=== PATIENT | female | born 1965 | race African-American/Black ===

== ENCOUNTER 2020-05-31 11:02 | Outpatient (RCR) | payer OTHER | END 2020-08-17 12:38 | disposition home or self-care (01) | LOC: WSOH 11:02 | DX: S50.12XA Contusion of left forearm, initial encounter (principal); S52.502A Unspecified fracture of the lower end of left radius, initial encounter for closed fracture; I10 Essential (primary) hypertension; Y99.0 Civilian activity done for income or pay | CPT/HCPCS: 24091; A6549 ==

== ENCOUNTER 2020-08-23 15:00 | Outpatient (RCR) | payer OTHER | END 2020-08-30 | disposition home or self-care (01) | LOC: WSOT | DX: S52.502A Unspecified fracture of the lower end of left radius, initial encounter for closed fracture (principal) ==

== ENCOUNTER 2020-08-31 15:00 | Outpatient (RCR) | payer OTHER | END 2020-10-01 15:29 | disposition home or self-care (01) | LOC: WSOT 15:00 | DX: S52.502A Unspecified fracture of the lower end of left radius, initial encounter for closed fracture (principal) ==